=== PATIENT | female | born 1960 | race Caucasian/White ===

== ENCOUNTER 2016-08-28 08:50 | Emergency (ER) | payer BC ==
[~2016-08-28 08:50] MED LIST: CALCIUM500 MG PO; DYNACIN100 M1 PO; FOLIC ACID1 M1 PO; KEFLEX500 MG PO; LOESTRIN PO; METHOTREXA25 MG/1 M2 IJ; METHOTREXATE2.5 MG PO; MINOCYCLINE HCL50 MG PO; MOTRIN800 MG PO; MULTIVITAMINS1 EAC6 PO; NAPROSYN500 MG PO; PLAQUENIL200 MG PO; PREDNISONE1 MG PO; REGLAN5 MG PO; SULFASALAZINE500 MG PO; TETRACYCLINE250 MG PO; VITAMIN D1000 UNI1 PO; VIVELLE1 PATCH.BW TD
[2016-08-28] MEDS ORDERED: METHOTREXA25 MG/110 SC (09:07)
[2016-08-28] MEDS ORDERED: NAPRELAN500 M2 PO (09:08)
[2016-08-28] MEDS ORDERED: PREDNISONE5 M1 PO (09:09)
[2016-08-28] MEDS ORDERED: TRAZODONE HCL50 M1 PO (09:09)
[2016-08-28] MEDS ORDERED: RITUXAN100 MG/10 IV (09:11)
[2016-08-28 09:42] LABS: BASO % 0.8 % (0-2); BASO ABSOLUTE COUNT 0.1 tho/cmm (0.0-0.2); EOS % 0.5 % (0-7); EOSINOPHIL ABSOLUTE COUNT 0.1 tho/cmm (0.0-0.7); HCT-HEMATOCRIT 37.7 % (34.0-49.0); HGB-HEMOGLOBIN 13.2 gm/dl (12.0-15.5); IMMATURE GRANULOCYTES ABSOLUTE 0.02 tho/cmm (0-0.03); IMMATURE GRANULOCYTES PERCENT 0.2 % (0-0.3); LYMPH ABSOLUTE COUNT 1.5 tho/cmm (0.8-4.5); MCH (MEAN CORPUSCULAR HGB) 31.7 pg (28.0-32.0); MCV (MEAN CELL VOLUME) 90.6 fl (82.0-96.0); MEAN PLATELET VOLUME 10.4 cmc (9.4-12.4); MONO % 5.3 % (0-12); MONOCYTE ABSOLUTE COUNT 0.5 tho/cmm (0.0-1.2); NEUTROPHIL ABSOLUTE COUNT 7.3 tho/cmm (1.6-8.0); NEUTROPHIL-AUTOMATED 7.3 tho/cmm (1.6-8.0); NEUTROPHILS % 77.2 % (40-80); PLATELET COUNT 330 tho/cmm (150-450); RED BLOOD COUNT 4.16 mil/cmm (4.00-5.20); RED CELL DISTRIBUTION WIDTH 12.6 % (12.4-16.4); WHITE BLOOD COUNT 9.5 tho/cmm (4.0-10.0)
[2016-08-28 10:07] LABS: ANION GAP 13 mmol/L (0-20); BLOOD UREA NITROGEN 24 mg/dl (6-24); CALCIUM 9.7 mg/dl (8.5-10.5); CARBON DIOXIDE-VENOUS 27 mmol/L (22-32); CHLORIDE 106 mmol/l (96-110); CREATININE 0.88 mg/dl (0.50-1.10); GLUCOSE 113 mg/dL (70-110); POTASSIUM 3.9 mmol/L (3.7-5.1); SODIUM 142 mmol/L (135-145); eGFR VALUE FOR BLACK 85 mL/Min
== END 2016-08-28 13:23 ==
LOC: EDMED 08:50
PROVIDERS: Emergency Medicine
DX: R55 Syncope and collapse (principal); R07.89 Other chest pain; M06.9 Rheumatoid arthritis, unspecified; B34.9 Viral infection, unspecified; Z90.49 Acquired absence of other specified parts of digestive tract; Z90.710 Acquired absence of both cervix and uterus; Z79.899 Other long term (current) drug therapy
CPT/HCPCS: C8929